=== PATIENT | female | born 1980 | race Caucasian/White ===

== ENCOUNTER 2022-09-06 01:02 | Inpatient (IN) | payer MEDICAID ==
[~2022-09-06] VITALS: Ht 170.2 cm; Wt 90.5 kg
[2022-09-06] MEDS ORDERED: SODIUM CHLORIDE 0.9% 1,000 ML IV ONE (01:30)
[2022-09-06 01:50] LABS: BASOPHILS % 0.8 % (0.0-2.0); EOSINOPHILS % 0.6 % (0.0-5.0); HEMATOCRIT. 39.7 % (36.0-48.0); HEMOGLOBIN. 13.7 g/dL (12.0-16.0); LYMPHOCYTES % 45.8 % (20.0-50.0); MEAN CORPUSCULAR HEMOGLOBIN 32.9 pg (28.0-32.0); MEAN CORPUSCULAR VOLUME 95.7 fL (81.0-99.0); MEAN PLATELET VOLUME 7.8 fl (7.4-10.4); MONOCYTES % 8.3 % (2.0-8.0); NEUTROPHILS % 44.5 % (40.0-76.0); PLATELET 338 x1000/uL (130-400); RED BLOOD CELL COUNT 4.15 mill/uL (4.2-5.4); RED CELL DISTRIBUTION WIDTH 13.5 % (11.6-14.6)
[2022-09-06 01:55] LABS: CHLORIDE 102 mEq/L (98-107)
[2022-09-06 02:12] LABS: ETHANOL BLOOD 268 mg/dL
[2022-09-06] MEDS ORDERED: POTASSIUM CHLORIDE 20MEQ TABLET SR PO NR (05:00)
[2022-09-06] MEDS ORDERED: ACETAMINOPHEN 325MG TABLET PO PRN ×2 (05:30)
[2022-09-06] MEDS ORDERED: ONDANSETRON HCL 4MG/2ML INJ IV PRN (05:30)
[2022-09-06] MEDS ORDERED: CLONIDINE 0.1MG TABLET PO PRN (05:30)
[2022-09-06] MEDS ORDERED: MAGNESIUM/ALUMINUM HYDROXIDE/SIMETHICONE 30ML UDC PO PRN (07:15)
[2022-09-06] MEDS ORDERED: DOCUSATE SODIUM 100MG CAPSULE PO PRN (07:15)
[2022-09-06] MEDS ORDERED: IPRATROPIUM/ALBUTEROL 0.5-3(2.5)MG/3ML NEB NEB PRN (07:15)
[2022-09-06] MEDS ORDERED: GUAIFENESIN 200MG/10ML SUGAR FREE UDC PO PRN (07:15)
[2022-09-06] MEDS ORDERED: ENOXAPARIN 40MG/0.4ML SYR SUBCUT SCH (07:15)
[2022-09-06 07:17] LABS: *AMPHETAMINES SCREEN URINE NEGATIVE (NEGATIVE); *BARBITURATES SCREEN URINE NEGATIVE (NEGATIVE); *BENZODIAZEPINES SCREEN URINE NEGATIVE (NEGATIVE); *COCAINE SCREEN URINE NEGATIVE (NEGATIVE); CANNABINOID URINE SCREEN NEGATIVE (NEGATIVE); METHADONE URINE SCREEN NEGATIVE (NEGATIVE); OPIATES URINE SCREEN NEGATIVE (NEGATIVE); PHENCYCLIDINE URINE SCREEN NEGATIVE (NEGATIVE)
[2022-09-06] MEDS ORDERED: KCL 20MEQ/100ML PREMIX 100 ML IV NR (07:30)
[2022-09-06 08:00] VITALS: BP 111/61
[2022-09-06 09:33] VITALS: BP 111/61
[2022-09-06] MEDS ORDERED: AMLO5TAB88 PO (09:46)
[2022-09-06] MEDS: FAMOTIDINE 20MG TABLET PO SCH ×2 (09:58→20:28)
[2022-09-06] MEDS: ENOXAPARIN 40MG/0.4ML SYR SUBCUT SCH (09:59)
[2022-09-06 11:59] VITALS: BP 95/50
[2022-09-06 12:26] LABS: VITAMIN B12 SERUM 511 pg/mL (211-911)
[2022-09-06 15:36] VITALS: BP 95/50
[2022-09-06 20:00] VITALS: BP 103/62
[2022-09-06] MEDS: KETOROLAC 15MG/ML VIAL IV PRN (20:29)
[2022-09-07 00:30] VITALS: BP 99/61
[2022-09-07 04:00] VITALS: BP 103/67
[2022-09-07 06:41] LABS: PHOSPHORUS 2.5 mg/dL (2.5-4.9)
[2022-09-07 06:49] LABS: BASOPHILS % 0.6 % (0.0-2.0); EOSINOPHILS % 0.3 % (0.0-5.0); HEMATOCRIT. 36.4 % (36.0-48.0); HEMOGLOBIN. 12.5 g/dL (12.0-16.0); LYMPHOCYTES % 31.6 % (20.0-50.0); MEAN PLATELET VOLUME 8.2 fl (7.4-10.4); MONOCYTES % 8.5 % (2.0-8.0); PLATELET 305 x1000/uL (130-400); RED BLOOD CELL COUNT 3.79 mill/uL (4.2-5.4); RED CELL DISTRIBUTION WIDTH 13.3 % (11.6-14.6)
[2022-09-07 07:40] VITALS: BP 105/64
[2022-09-07] MEDS ORDERED: BUPROPION HCL 100MG SR TABLET PO SCH (09:00)
[2022-09-07] MEDS: FAMOTIDINE 20MG TABLET PO SCH (09:19)
[2022-09-07] MEDS: ENOXAPARIN 40MG/0.4ML SYR SUBCUT SCH (09:19)
[2022-09-07] MEDS: KETOROLAC 15MG/ML VIAL IV PRN (11:46)
[2022-09-07 11:54] VITALS: BP 111/65
[2022-09-07 11:59] VITALS: BP 111/65
[2022-09-07] MEDS ORDERED: FOLIC ACID 1 MG in SODIUM CHLORIDE 0.9% 500 ML IV ONE (12:00)
[2022-09-07 15:19] VITALS: BP 112/68
[2022-09-08] MEDS ORDERED: FOLIC ACID 1MG TABLET PO SCH (09:00)
== END 2022-09-07 17:30 | disposition home or self-care (01) | DRG 816 ==
LOC: ER 01:21 → 8WST 03:33 → ENRESERV 08:23
PROVIDERS: ADMIT Internal Medicine; ATTEND Internal Medicine
DX: T46.1X1A Poisoning by calcium-channel blockers, accidental (unintentional), initial encounter (principal); R45.851 Suicidal ideations; R53.1 Weakness; F10.129 Alcohol abuse with intoxication, unspecified; I10 Essential (primary) hypertension; Y90.8 Blood alcohol level of 240 mg/100 ml or more; E03.9 Hypothyroidism, unspecified; E87.6 Hypokalemia; F41.9 Anxiety disorder, unspecified; F32.9 Major depressive disorder, single episode, unspecified; F32.A Depression, unspecified; Z86.59 Personal history of other mental and behavioral disorders
CPT/HCPCS: 36415; 80053; 80061; 80305; 80307; 80320; 80329; 82607; 82746; 83036; 83540; 83550; 83735; 83880; 84100; 84439; 84443; 85025; 93005; 93970; 99285; C1893; J1650; J1885; J2405; J3480; J3490; J7030; J7040; G0480

== ENCOUNTER 2024-07-16 23:47 | Emergency (ER) | payer MEDICAID ==
[~2024-07-16] VITALS: Ht 170.2 cm; Wt 75.0 kg
[~2024-07-16 23:47] MED LIST: AMLO10TA80 PO; CLON1TAB12 PO; SERT25TA74 PO
[2024-07-16 23:55] VITALS: O2SAT 96
[2024-07-17 01:23] LABS: EOSINOPHILS % 0.5 % (0.0-5.0); HEMATOCRIT. 39.1 % (36.0-48.0); HEMOGLOBIN. 13.2 g/dL (12.0-16.0); LYMPHOCYTES % 60.4 % (20.0-50.0); MEAN CORPUSCULAR HEMOGLOBIN 32.7 pg (28.0-32.0); MEAN CORPUSCULAR HGB CONC 33.7 g/dL (31.0-37.0); MEAN CORPUSCULAR VOLUME 97.1 fL (81.0-99.0); MEAN PLATELET VOLUME 7.4 fl (7.4-10.4); MONOCYTES % 8.1 % (2.0-8.0); PLATELET 332 x1000/uL (130-400); RED BLOOD CELL COUNT 4.03 mill/uL (4.2-5.4); RED CELL DISTRIBUTION WIDTH 13.6 % (11.6-14.6); WHITE BLOOD COUNT 8.2 x1000/uL (4.5-11.0)
[2024-07-17 01:39] LABS: CALCIUM 9.5 mg/dL (8.7-10.4); CARBON DIOXIDE 26 mEq/L (21-32); CHLORIDE 103 mEq/L (98-107); CREATININE 0.8 mg/dL (0.6-1.0); GLUCOSE 121 mg/dL (70-105); POTASSIUM 3.8 mEq/L (3.5-5.1); SODIUM 137 mEq/L (136-145); UREA NITROGEN BLOOD 11 mg/dL (9-23)
[2024-07-17 01:40] LABS: ETHANOL BLOOD 300 mg/dL (<10)
[2024-07-17 01:41] LABS: ACETAMINOPHEN 3 ug/mL (10-30); ALANINE AMINOTRANSFERASE 24 IU/L (10-49); ALBUMIN 4.8 g/dL (3.2-4.8); ASPARTATE AMINOTRANSFERASE 26 IU/L (<34); BILIRUBIN DIRECT 0.1 mg/dL (<=3.0); BILIRUBIN TOTAL 0.5 mg/dL (0.1-1.0); PROTEIN TOTAL 7.6 g/dL (6.0-8.3)
[2024-07-17] MEDS: DIPHENHYDRAMINE 25MG CAPSULE PO ONE ×2 (01:53→22:50)
[2024-07-17 01:57] LABS: CLARITY URINE CLEAR (CLEAR); COLOR URINE YELLOW (YELLOW); GLUCOSE URINE NEGATIVE (NEGATIVE); KETONES URINE NEGATIVE (NEGATIVE); LEUKOCYTE ESTERASE URINE NEGATIVE (NEGATIVE); NITRITE URINE NEGATIVE (NEGATIVE); OCCULT BLOOD URINE NEGATIVE (NEGATIVE); PROTEIN URINE NEGATIVE (NEGATIVE); SPECIFIC GRAVITY URINE 1.006 (1.005-1.030); UROBILINOGEN URINE 0.2 E.U./dL (0.2-1.0)
[2024-07-17 01:57] LABS: HCG SCREEN NEGATIVE
[2024-07-17 02:04] LABS: *AMPHETAMINES SCREEN URINE NEGATIVE (NEGATIVE); *BARBITURATES SCREEN URINE NEGATIVE (NEGATIVE); *BENZODIAZEPINES SCREEN URINE NEGATIVE (NEGATIVE); *COCAINE SCREEN URINE NEGATIVE (NEGATIVE); CANNABINOID URINE SCREEN NEGATIVE (NEGATIVE); ECSTASY MDMA SCREEN URINE NEGATIVE (NEGATIVE); METHADONE URINE SCREEN NEGATIVE (NEGATIVE); OPIATES URINE SCREEN PRESUMPTIVE POSITIVE (NEGATIVE); PHENCYCLIDINE URINE SCREEN NEGATIVE (NEGATIVE)
[2024-07-18] MEDS: SERTRALINE HCL 25MG TABLET PO SCH (09:00)
[2024-07-18 09:04] VITALS: BP 156/88; PULSE 95; RESP 18; TEMP 37.00296; O2SAT 99
== END 2024-07-18 04:30 ==
LOC: ER 23:47
DX: F10.129 Alcohol abuse with intoxication, unspecified (principal); R45.851 Suicidal ideations; F32.A Depression, unspecified; F13.10 Sedative, hypnotic or anxiolytic abuse, uncomplicated; Z20.822 Contact with and (suspected) exposure to COVID-19; Z00.00 Encounter for general adult medical examination without abnormal findings; Z98.890 Other specified postprocedural states; Y90.8 Blood alcohol level of 240 mg/100 ml or more
CPT/HCPCS: 80076; 80305; 80048; 81003; 80307; 80329; 80320; 82962; 84703; 85025; 36415; 99285; 87426; Q0163; G0480